=== PATIENT | female | born 1980 | race African-American/Black ===

== ENCOUNTER 2019-02-21 19:39 | Inpatient (IN) | payer MEDICARE ==
[~2019-02-21] VITALS: Ht 167.6 cm; Wt 114.1 kg
[2019-02-21 20:36] LABS: BASO # 0.1 x10^3/uL (0.0-0.2); BASO % 0 % (0-3); EOS # 0.1 x10^3/uL (0.0-0.7); EOS % 0 % (0-3); LYMPH # 2.4 x10^3/uL (1.0-4.8); LYMPH % 14 % (24-48); MEAN CORPUSCULAR HEMOGLOBIN 18 pg (25-35); MEAN CORPUSCULAR HGB CONC 29 g/dL (31-37); MEAN CORPUSCULAR VOLUME 62 fL (79-100); MONO % 6 % (0-9); NEUT % 80 % (31-73); PLATELET COUNT 372 x10^3/uL (140-400); WHITE BLOOD COUNT 17.5 x10^3/uL (4.0-11.0)
[2019-02-21 20:38] LABS: HEMATOCRIT 16.1 % (36.0-47.0); HEMOGLOBIN 4.7 g/dL (12.0-15.5)
[2019-02-21 20:44] LABS: PROTHROMBIN TIME PATIENT 13.2 SEC (11.7-14.0)
[2019-02-21 20:45] LABS: CALCIUM 8.5 mg/dL (8.5-10.1); CREATININE 1.1 mg/dL (0.6-1.0); GFR 67.3; POTASSIUM 3.7 mmol/L (3.5-5.1)
[2019-02-21 20:51] LABS: ALBUMIN 3.5 g/dL (3.4-5.0); ALBUMIN/GLOBULIN RATIO 0.9 (1.0-1.7); TOTAL BILIRUBIN 0.2 mg/dL (0.2-1.0); TOTAL PROTEIN 7.3 g/dL (6.4-8.2)
[2019-02-21 21:25] LABS: BILIRUBIN,URINE NEGATIVE (NEG); CLARITY,URINE CLEAR; COLOR,URINE YELLOW; NITRITE,URINE NEGATIVE (NEG); PH,URINE 5.5; PROTEIN,URINE NEGATIVE (NEG-TRACE); UROBILINOGEN,URINE 0.2 mg/dL (0.2 mg/dL)
[2019-02-21 21:34] LABS: BACTERIA,URINE FEW /HPF (0-FEW); RBC,URINE TNTC /HPF (0-2); SQUAMOUS EPITHELIAL CELL,UR FEW /LPF
[2019-02-21 21:40] LABS: % BANDS 2 % (0-9); % BASOS 3 % (0-3); % LYMPHS 6 % (24-48); % MONOS 6 % (0-10); % SEGS 83 % (35-66); ANISOCYTOSIS MOD; HYPOCHROMIA MARKED; MICROCYTOSIS MARKED; PLT ESTIMATE ADEQUATE (ADEQUATE)
[2019-02-21 21:41] LABS: POLYCHROMASIA SLIGHT
--- NOTE | 2019-02-21 22:03 | RAD ---
Exam: Ultrasound transvaginal Indication: Bleeding Technique: Real-time grayscale and color Doppler images of the pelvis were obtained by the department electrophysiology scientist. Comparisons: None FINDINGS: Uterus measures 10.1 x 6.4 x 5.8 cm. Endometrium measures 14 mm in thickness. Right ovary measures 3.3 x 2.6 x 2.4 cm. Left ovary measures 3.2 x 2.2 x 1.7 cm. Vascular flow evaluation is limited in the left ovary secondary to positioning. Normal vascular flow noted within the right ovary. IMPRESSION: 1. The endometrium measures 14 mm in thickness which is within normal range for a premenopausal female. Given history of prolonged bleeding short-term follow-up ultrasound in 2 weeks to reassess is recommended. 2. Vascular flow in the left ovary is not well assessed secondary to likely technical factors and positioning. Otherwise normal sonographic appearance of the ovaries. Electronically signed by: David Medina MD (02/21/2019 10:00 PM) [id number]
--- NOTE | 2019-02-21 22:30 | PHYS DOC ---
Past Medical History Past Medical History: Bipolar Alcohol Use: None Drug Use: None Adult General Chief Complaint Chief Complaint: FATIGUE HPI HPI Patient is a 38 year old 38-year-old female presenting to the due to chief complaint of 50, dizziness and vaginal bleeding. Patient states that she went to [facility] and was referred to the ED for further evaluation and treatment. Patient states that she's had vaginal bleeding for the last 3 months. Patient states that she has a scheduled appointment with [facility] early next month. Review of Systems Review of Systems Constitutional: Denies fever or chills. Compensatory dizziness, fatigue HENT: Denies nasal congestion, sore throat, sinus tenderness Respiratory: Denies cough or shortness of breath Cardiovascular: Denies CP GI: Denies abdominal pain, nausea, vomiting or diarrhea : Pains of vaginal bleeding Musculoskeletal: Denies back pain or joint pain Skin: Denies rash or skin lesions Neurologic: Denies headache, focal weakness or sensory changes Complete systems were reviewed and found to be within normal limits, except as documented in this note. Allergies Allergies Allergies Coded Allergies Type Severity Reaction Last Updated Verified No Known Drug Allergies 02/21/19 No Physical Exam Physical Exam Constitutional: Well developed, well nourished, no acute distress, non-toxic appearance. Patient appears pale HENT: Normocephalic, atraumatic Eyes: PERRLA, EOMI Neck: Normal range of motion, no tenderness, supple Cardiovascular:Heart rate regular rhythm, no murmur [] Lungs & Thorax: Bilateral breath sounds clear to auscultation [] Abdomen: Bowel sounds normal, soft, no tenderness Extremities: No tenderness, no cyanosis, no clubbing, ROM intact Neurologic: Alert and oriented X 3, normal motor function, normal sensory function, no focal deficits noted. [] Current Patient Data Vital Signs Vital Signs Date Time Temp Pulse Resp B/P (MAP) Pulse Ox O2 Delivery O2 Flow Rate FiO2 02/21/19 20:49 96 20 123/58 (79) 95 Room Air 02/21/19 19:46 98.5 98.5 Lab Values Laboratory Tests Test 02/21/19 20:15 02/21/19 20:30 02/21/19 20:32 White Blood Count 17.5 x10^3/uL (4.0-11.0) H Red Blood Count 2.60 x10^6/uL (3.50-5.40) L Hemoglobin 4.7 g/dL (12.0-15.5) *L Hematocrit 16.1 % (36.0-47.0) *L Mean Corpuscular Volume 62 fL (79-100) L Mean Corpuscular Hemoglobin 18 pg (25-35) L Mean Corpuscular Hemoglobin Concent 29 g/dL (31-37) L Red Cell Distribution Width 24.0 % (11.5-14.5) H Platelet Count 372 x10^3/uL (140-400) Neutrophils (%) (Auto) 80 % (31-73) H Lymphocytes (%) (Auto) 14 % (24-48) L Monocytes (%) (Auto) 6 % (0-9) Eosinophils (%) (Auto) 0 % (0-3) Basophils (%) (Auto) 0 % (0-3) Neutrophils # (Auto) 14.0 x10^3/uL (1.8-7.7) H Lymphocytes # (Auto) 2.4 x10^3/uL (1.0-4.8) Monocytes # (Auto) 1.0 x10^3/uL (0.0-1.1) Eosinophils # (Auto) 0.1 x10^3/uL (0.0-0.7) Basophils # (Auto) 0.1 x10^3/uL (0.0-0.2) Segmented Neutrophils % 83 % (35-66) H Band Neutrophils % 2 % (0-9) Lymphocytes % 6 % (24-48) L Monocytes % 6 % (0-10) Basophils % 3 % (0-3) Platelet Estimate Adequate (ADEQUATE) Polychromasia Slight Hypochromasia Marked Anisocytosis Mod Microcytosis Marked Prothrombin Time 13.2 SEC (11.7-14.0) Prothrombin Time INR 1.0 (0.8-1.1) Sodium Level 143 mmol/L (136-145) Potassium Level 3.7 mmol/L (3.5-5.1) Chloride Level 108 mmol/L (98-107) H Carbon Dioxide Level 25 mmol/L (21-32) Anion Gap 10 (6-14) Blood Urea Nitrogen 9 mg/dL (7-20) Creatinine 1.1 mg/dL (0.6-1.0) H Estimated GFR (Cockcroft-Gault) 67.3 BUN/Creatinine Ratio 8 (6-20) Glucose Level 104 mg/dL (70-99) H Calcium Level 8.5 mg/dL (8.5-10.1) Total Bilirubin 0.2 mg/dL (0.2-1.0) Aspartate Amino Transferase (AST) 16 U/L (15-37) Alanine Aminotransferase (ALT) 15 U/L (14-59) Alkaline Phosphatase 73 U/L (46-116) Total Protein 7.3 g/dL (6.4-8.2) Albumin 3.5 g/dL (3.4-5.0) Albumin/Globulin Ratio 0.9 (1.0-1.7) L Urine Collection Type Unknown Urine Color Yellow Urine Clarity Clear Urine pH 5.5 Urine Specific [employer] 1.025 Urine Protein Negative mg/dL (NEG-TRACE) Urine Glucose (UA) Negative mg/dL (NEG) Urine Ketones (Stick) Negative mg/dL (NEG) Urine Blood Large (NEG) Urine Nitrite Negative (NEG) Urine Bilirubin Negative (NEG) Urine Urobilinogen Dipstick 0.2 mg/dL (0.2 mg/dL) Urine Leukocyte Esterase Trace (NEG) Urine RBC Tntc /HPF (0-2) Urine WBC 5-10 /HPF (0-4) Urine Squamous Epithelial Cells Few /LPF Urine Bacteria Few /HPF (0-FEW) Urine Mucus Marked /LPF POC Urine HCG, Qualitative Hcg negative (Negative) Laboratory Tests 02/21/19 20:15 Laboratory Tests 02/21/19 20:15 EKG EKG [] Radiology/Procedures Radiology/Procedures Ordered pelvic ultrasound. Impressions: Pelvic ultrasound does not show any acute disease. Course & Med Decision Making Course & Med Decision Making Pertinent Labs and Imaging studies reviewed. (See chart for details) Ordered labs, type and screen, pelvic ultrasound, IV. Labs show the patient's hemoglobin of 4.6. Ordered to transfuse 2 units of blood. Pelvic ultrasound does not show any acute disease. Discussed results and plan of care with patient. Patient will be admitted. Discussed care with Dr. Miranda who accepts admission. Nishion Disclaimer Dragon Disclaimer This electronic medical record was generated, in whole or in part, using a voice recognition dictation system. Departure Departure Impression: Primary Impression: Severe anemia Additional Impression: Vaginal bleeding Disposition: ADMITTED INPATIENT Condition: GUARDED Referrals: NO PCP (PCP) Problem Qualifiers SYLVIA JOHN DO Feb 21, 2019 22:30
[2019-02-21] MEDS ORDERED: DIVA500T2 PO (23:35)
[2019-02-21] MEDS ORDERED: BENZ2TAB5 PO (23:35)
[2019-02-21 23:40] VITALS: BP 126/70
[2019-02-22] VITALS (15 sets, daily range): BP systolic 107–126; BP diastolic 48–74
[2019-02-22 06:20] LABS: BASO # 0.1 x10^3/uL (0.0-0.2); BASO % 1 % (0-3); EOS # 0.1 x10^3/uL (0.0-0.7); EOS % 1 % (0-3); LYMPH # 2.9 x10^3/uL (1.0-4.8); LYMPH % 18 % (24-48); MEAN CORPUSCULAR HEMOGLOBIN 20 pg (25-35); MEAN CORPUSCULAR HGB CONC 30 g/dL (31-37); MEAN CORPUSCULAR VOLUME 67 fL (79-100); MONO % 6 % (0-9); NEUT # 12.3 x10^3/uL (1.8-7.7); NEUT % 75 % (31-73); PLATELET COUNT 315 x10^3/uL (140-400); RED CELL DISTRIBUTION WIDTH 27.6 % (11.5-14.5); WHITE BLOOD COUNT 16.4 x10^3/uL (4.0-11.0)
[2019-02-22 06:33] LABS: HEMATOCRIT 20.9 % (36.0-47.0); HEMOGLOBIN 6.3 g/dL (12.0-15.5)
--- NOTE | 2019-02-22 10:36 | PDOC ---
[employer] PROGRESS NOTE Chief Complaint Chief Complaint Severe anemia, vaginal bleeding History of Present Illness History of Present Illness Patient is a 38 year old 38-year-old female presenting to the due to chief complaint of 50, dizziness and vaginal bleeding. Patient states that she went to [facility] and was referred to the ED for further evaluation and treatment. Patient states that she's had vaginal bleeding for the last 3 months. Patient states that she has a scheduled appointment with [facility] early next month. Patient seen and examined on medical floor. Planning to consult OBGYN for excessive vaginal bleeding. Vitals/I&O Vitals/I&O: Vital Signs Date Time Temp Pulse Resp B/P (MAP) Pulse Ox O2 Delivery O2 Flow Rate FiO2 02/22/19 08:00 Room Air 02/22/19 07:38 98.2 87 16 107/59 (75) 98.2 02/22/19 02:45 97 I & O 02/21/19 02/21/19 02/22/19 15:00 23:00 07:00 Intake Total 1000 ml Output Total 0 ml Balance 1000 ml Physical Exam General: Alert, Oriented X3, Cooperative, No acute distress Heart: Regular rate, Normal S1, Normal S2, No murmurs Lungs: Clear Abdomen: Normal bowel sounds, Soft, No tenderness, No hepatosplenomegaly Extremities: No clubbing, No cyanosis, No edema, Normal pulses Skin: No rashes, No breakdown, No significant lesion Labs Labs: Laboratory Tests Test 02/21/19 20:15 02/21/19 20:30 02/21/19 20:32 02/22/19 06:00 White Blood Count 17.5 x10^3/uL (4.0-11.0) 16.4 x10^3/uL (4.0-11.0) Red Blood Count 2.60 x10^6/uL (3.50-5.40) 3.10 x10^6/uL (3.50-5.40) Hemoglobin 4.7 g/dL (12.0-15.5) 6.3 g/dL (12.0-15.5) Hematocrit 16.1 % (36.0-47.0) 20.9 % (36.0-47.0) Mean Corpuscular Volume 62 fL (79-100) 67 fL (79-100) Mean Corpuscular Hemoglobin 18 pg (25-35) 20 pg (25-35) Mean Corpuscular Hemoglobin Concent 29 g/dL (31-37) 30 g/dL (31-37) Red Cell Distribution Width 24.0 % (11.5-14.5) 27.6 % (11.5-14.5) Platelet Count 372 x10^3/uL (140-400) 315 x10^3/uL (140-400) Neutrophils (%) (Auto) 80 % (31-73) 75 % (31-73) Lymphocytes (%) (Auto) 14 % (24-48) 18 % (24-48) Monocytes (%) (Auto) 6 % (0-9) 6 % (0-9) Eosinophils (%) (Auto) 0 % (0-3) 1 % (0-3) Basophils (%) (Auto) 0 % (0-3) 1 % (0-3) Neutrophils # (Auto) 14.0 x10^3/uL (1.8-7.7) 12.3 x10^3/uL (1.8-7.7) Lymphocytes # (Auto) 2.4 x10^3/uL (1.0-4.8) 2.9 x10^3/uL (1.0-4.8) Monocytes # (Auto) 1.0 x10^3/uL (0.0-1.1) 1.0 x10^3/uL (0.0-1.1) Eosinophils # (Auto) 0.1 x10^3/uL (0.0-0.7) 0.1 x10^3/uL (0.0-0.7) Basophils # (Auto) 0.1 x10^3/uL (0.0-0.2) 0.1 x10^3/uL (0.0-0.2) Segmented Neutrophils % 83 % (35-66) Band Neutrophils % 2 % (0-9) Lymphocytes % 6 % (24-48) Monocytes % 6 % (0-10) Basophils % 3 % (0-3) Platelet Estimate Adequate (ADEQUATE) Polychromasia Slight Hypochromasia Marked Anisocytosis Mod Microcytosis Marked Prothrombin Time 13.2 SEC (11.7-14.0) Prothromb Time International Ratio 1.0 (0.8-1.1) Sodium Level 143 mmol/L (136-145) Potassium Level 3.7 mmol/L (3.5-5.1) Chloride Level 108 mmol/L (98-107) Carbon Dioxide Level 25 mmol/L (21-32) Anion Gap 10 (6-14) Blood Urea Nitrogen 9 mg/dL (7-20) Creatinine 1.1 mg/dL (0.6-1.0) Estimated GFR (Cockcroft-Gault) 67.3 BUN/Creatinine Ratio 8 (6-20) Glucose Level 104 mg/dL (70-99) Calcium Level 8.5 mg/dL (8.5-10.1) Total Bilirubin 0.2 mg/dL (0.2-1.0) Aspartate Amino Transf (AST/SGOT) 16 U/L (15-37) Alanine Aminotransferase (ALT/SGPT) 15 U/L (14-59) Alkaline Phosphatase 73 U/L (46-116) Total Protein 7.3 g/dL (6.4-8.2) Albumin 3.5 g/dL (3.4-5.0) Albumin/Globulin Ratio 0.9 (1.0-1.7) Urine Collection Type Unknown Urine Color Yellow Urine Clarity Clear Urine pH 5.5 Urine Specific [employer] 1.025 Urine Protein Negative mg/dL (NEG-TRACE) Urine Glucose (UA) Negative mg/dL (NEG) Urine Ketones (Stick) Negative mg/dL (NEG) Urine Blood Large (NEG) Urine Nitrite Negative (NEG) Urine Bilirubin Negative (NEG) Urine Urobilinogen Dipstick 0.2 mg/dL (0.2 mg/dL) Urine Leukocyte Esterase Trace (NEG) Urine RBC Tntc /HPF (0-2) Urine WBC 5-10 /HPF (0-4) Urine Squamous Epithelial Cells Few /LPF Urine Bacteria Few /HPF (0-FEW) Urine Mucus Marked /LPF Bedside Urine HCG, Qualitative Hcg negative (Negative) Review of Systems Review of Systems: Patient denies N/V and weakness, patient complains of dizziness Assessment and Plan Assessmemt and Plan Assessment: Excessive vaginal bleeding, Severe anemia Plan: 1. Transfuse 2 units of packed RBCs 2. add iron 3. consult OBGYN for excessive vaginal bleeding 4. DVT prophylaxis 5. home meds 6. full code Comment Review of Relevant I have reviewed the following items terence (where applicable) has been applied. JANINE THIBODEAUX III DO Feb 22, 2019 10:36
[2019-02-22] MEDS: IRON POLYSACCHARIDE COMPLEX 150 MG CAPSULE PO SCH ×2 (12:23→20:50)
--- NOTE | 2019-02-22 12:43 | PDOC2 ---
CONSULT Date of Consult Date of Consult DATE: 02/22/19 TIME: 12:39 Reason for Consult Reason for Consult: vaginal bleeding Referring Physician Referring Physician: Dr. Pena Identification/Chief Complaint Chief Complaint dizziness and fatigue Source Source: Chart review, Patient History of Present Illness Reason for Visit: 38 y/o presents to ED with c/o dizziness, fatigue and vaginal bleeding daily x 3 months. She plans to see Dr. Solis in couple weeks. She is in process of 3rd unit of PRBCs due to severe anemia hgb less than 5. No h/o bl eeding disorders. Past Surgical History Past Surgical History: No pertinent history Current Medications Current Medications Current Medications Polysaccharide Iron Complex (Niferex 150) 150 mg BID PO Last administered on 02/22/19at 12:23; Start 02/22/19 at 12:00 Active Scripts Active Reported Benztropine Mesylate 2 Mg Tablet 2 Mg PO DAILY Depakote (Divalproex Sodium) 500 Mg Tablet.dr 250 Mg PO TID Allergies Allergies: Coded Allergies: No Known Drug Allergies (Unverified , 02/21/19) ROS General: YES: Fatigue, Malaise; No: Chills, Night Sweats, Appetite, Other PSYCHOLOGICAL ROS: No: Anxiety, Behavioral Disorder, Concentration difficultie, Decreased libido, Depression, Disorientation, Hallucinations, Hostility, Irritablity, Memory difficulties, Mood Swings, Obsessive thoughts, Physical abuse, Sexual abuse, Sleep disturbances, Suicidal ideation, Other Eyes: No Blurry vision, No Decreased vision, No Double vision, No Dry eyes, No Excessive tearing, No Eye Pain, No Itchy Eyes, No Loss of vision, No Photophobia, No Scotomata, No Uses contacts, No Uses glasses, No Other HEENT: No: Heacaches, Visual Changes, Hearing change, Nasal congestion, Nasal discharge, Oral lesions, Sinus pain, Sore Throat, Epistaxis, Sneezing, Snoring, Tinnitus, Vertigo, Vocal changes, Other ALLERGY AND IMMUNOLOGY: No: Hives, Insect Bite Sensitivity, Itchy/Watery Eyes, Nasal Congestion, Post Nasal Drip, Seasonal Allergies, Other Hematological and Lymphatic: No: Bleeding Problems, Blood Clots, Blood Transfusions, Brusing, Night Sweats, Pallor, Swollen Lymph Nodes, Other ENDOCRINE: No: Breast Changes, Galactorrhea, Hair Pattern Changes, Hot Flashes, Malaise/lethargy, Mood Swings, Palpitations, Polydipsia/polyuria, Skin Changes, Temperature Intolerance, Unexpected Weight Changes, Other Respiratory: No: Cough, Hemoptysis, Orthopnea, Pleuritic Pain, Shortness of breath, SOB with excertion, Sputum Changes, Stridor, Tachypnea, Wheezing, Other Cardiovascular: No Chest Pain, No Palpitations, No Orthopnea, No Paroxysmal N oc. Dyspnea, No Edema, No Lt Headedness, No Other Gastrointestinal: No Nausea, No Vomiting, No Abdominal Pain, No Diarrhea, No Constipation, No Melena, No Hematochezia, No Other Genitourinary: No Dysuria, No Frequency, No Incontinence, No Hematuria, No Retention, No Discharge, No Urgency, No Pain, No Flank Pain, No Other, No , No , No , No , No , No , No Neurological: No Behavorial Changes, No Bowel/Bladder ControlChng, No Confusion, No Dizziness, No Gait Disturbance, No Headaches, No Impaired Coord/balance, No Memory Loss, No Numbness/Tingling, No Seizures, No Speech Problems, No Tremors, No Visual Changes, No Weakness, No Other Physical Exam General: Alert, Oriented X3, Cooperative HEENT: Atraumatic Lungs: Clear to auscultation Heart: Regular rate Abdomen: Normal bowel sounds, Soft, No tenderness, No masses Extremities: No edema Neuro: Normal gait Psych/Mental Status: Mental status NL Vitals VITALS Vital Signs Date Time Temp Pulse Resp B/P (MAP) Pulse Ox O2 Delivery O2 Flow Rate FiO2 02/22/19 12:21 98.8 85 16 112/56 98.8 02/22/19 11:24 97 Room Air Labs Labs Laboratory Tests Test 02/21/19 20:15 02/21/19 20:30 02/21/19 20:32 02/22/19 06:00 White Blood Count 17.5 x10^3/uL (4.0-11.0) 16.4 x10^3/uL (4.0-11.0) Red Blood Count 2.60 x10^6/uL (3.50-5.40) 3.10 x10^6/uL (3.50-5.40) Hemoglobin 4.7 g/dL (12.0-15.5) 6.3 g/dL (12.0-15.5) Hematocrit 16.1 % (36.0-47.0) 20.9 % (36.0-47.0) Mean Corpuscular Volume 62 fL (79-100) 67 fL (79-100) Mean Corpuscular Hemoglobin 18 pg (25-35) 20 pg (25-35) Mean Corpuscular Hemoglobin Concent 29 g/dL (31-37) 30 g/dL (31-37) Red Cell Distribution Width 24.0 % (11.5-14.5) 27.6 % (11.5-14.5) Platelet Count 372 x10^3/uL (140-400) 315 x10^3/uL (140-400) Neutrophils (%) (Auto) 80 % (31-73) 75 % (31-73) Lymphocytes (%) (Auto) 14 % (24-48) 18 % (24-48) Monocytes (%) (Auto) 6 % (0-9) 6 % (0-9) Eosinophils (%) (Auto) 0 % (0-3) 1 % (0-3) Basophils (%) (Auto) 0 % (0-3) 1 % (0-3) Neutrophils # (Auto) 14.0 x10^3/uL (1.8-7.7) 12.3 x10^3/uL (1.8-7.7) Lymphocytes # (Auto) 2.4 x10^3/uL (1.0-4.8) 2.9 x10^3/uL (1.0-4.8) Monocytes # (Auto) 1.0 x10^3/uL (0.0-1.1) 1.0 x10^3/uL (0.0-1.1) Eosinophils # (Auto) 0.1 x10^3/uL (0.0-0.7) 0.1 x10^3/uL (0.0-0.7) Basophils # (Auto) 0.1 x10^3/uL (0.0-0.2) 0.1 x10^3/uL (0.0-0.2) Segmented Neutrophils % 83 % (35-66) Band Neutrophils % 2 % (0-9) Lymphocytes % 6 % (24-48) Monocytes % 6 % (0-10) Basophils % 3 % (0-3) Platelet Estimate Adequate (ADEQUATE) Polychromasia Slight Hypochromasia Marked Anisocytosis Mod Microcytosis Marked Prothrombin Time 13.2 SEC (11.7-14.0) Prothromb Time International Ratio 1.0 (0.8-1.1) Sodium Level 143 mmol/L (136-145) Potassium Level 3.7 mmol/L (3.5-5.1) Chloride Level 108 mmol/L (98-107) Carbon Dioxide Level 25 mmol/L (21-32) Anion Gap 10 (6-14) Blood Urea Nitrogen 9 mg/dL (7-20) Creatinine 1.1 mg/dL (0.6-1.0) Estimated GFR (Cockcroft-Gault) 67.3 BUN/Creatinine Ratio 8 (6-20) Glucose Level 104 mg/dL (70-99) Calcium Level 8.5 mg/dL (8.5-10.1) Total Bilirubin 0.2 mg/dL (0.2-1.0) Aspartate Amino Transf (AST/SGOT) 16 U/L (15-37) Alanine Aminotransferase (ALT/SGPT) 15 U/L (14-59) Alkaline Phosphatase 73 U/L (46-116) Total Protein 7.3 g/dL (6.4-8.2) Albumin 3.5 g/dL (3.4-5.0) Albumin/Globulin Ratio 0.9 (1.0-1.7) Urine Collection Type Unknown Urine Color Yellow Urine Clarity Clear Urine pH 5.5 Urine Specific [employer] 1.025 Urine Protein Negative mg/dL (NEG-TRACE) Urine Glucose (UA) Negative mg/dL (NEG) Urine Ketones (Stick) Negative mg/dL (NEG) Urine Blood Large (NEG) Urine Nitrite Negative (NEG) Urine Bilirubin Negative (NEG) Urine Urobilinogen Dipstick 0.2 mg/dL (0.2 mg/dL) Urine Leukocyte Esterase Trace (NEG) Urine RBC Tntc /HPF (0-2) Urine WBC 5-10 /HPF (0-4) Urine Squamous Epithelial Cells Few /LPF Urine Bacteria Few /HPF (0-FEW) Urine Mucus Marked /LPF Bedside Urine HCG, Qualitative Hcg negative (Negative) Laboratory Tests Test 02/21/19 20:15 02/21/19 20:30 02/21/19 20:32 02/22/19 06:00 White Blood Count 17.5 x10^3/uL (4.0-11.0) 16.4 x10^3/uL (4.0-11.0) Red Blood Count 2.60 x10^6/uL (3.50-5.40) 3.10 x10^6/uL (3.50-5.40) Hemoglobin 4.7 g/dL (12.0-15.5) 6.3 g/dL (12.0-15.5) Hematocrit 16.1 % (36.0-47.0) 20.9 % (36.0-47.0) Mean Corpuscular Volume 62 fL (79-100) 67 fL (79-100) Mean Corpuscular Hemoglobin 18 pg (25-35) 20 pg (25-35) Mean Corpuscular Hemoglobin Concent 29 g/dL (31-37) 30 g/dL (31-37) Red Cell Distribution Width 24.0 % (11.5-14.5) 27.6 % (11.5-14.5) Platelet Count 372 x10^3/uL (140-400) 315 x10^3/uL (140-400) Neutrophils (%) (Auto) 80 % (31-73) 75 % (31-73) Lymphocytes (%) (Auto) 14 % (24-48) 18 % (24-48) Monocytes (%) (Auto) 6 % (0-9) 6 % (0-9) Eosinophils (%) (Auto) 0 % (0-3) 1 % (0-3) Basophils (%) (Auto) 0 % (0-3) 1 % (0-3) Neutrophils # (Auto) 14.0 x10^3/uL (1.8-7.7) 12.3 x10^3/uL (1.8-7.7) Lymphocytes # (Auto) 2.4 x10^3/uL (1.0-4.8) 2.9 x10^3/uL (1.0-4.8) Monocytes # (Auto) 1.0 x10^3/uL (0.0-1.1) 1.0 x10^3/uL (0.0-1.1) Eosinophils # (Auto) 0.1 x10^3/uL (0.0-0.7) 0.1 x10^3/uL (0.0-0.7) Basophils # (Auto) 0.1 x10^3/uL (0.0-0.2) 0.1 x10^3/uL (0.0-0.2) Segmented Neutrophils % 83 % (35-66) Band Neutrophils % 2 % (0-9) Lymphocytes % 6 % (24-48) Monocytes % 6 % (0-10) Basophils % 3 % (0-3) Platelet Estimate Adequate (ADEQUATE) Polychromasia Slight Hypochromasia Marked Anisocytosis Mod Microcytosis Marked Prothrombin Time 13.2 SEC (11.7-14.0) Prothromb Time International Ratio 1.0 (0.8-1.1) Sodium Level 143 mmol/L (136-145) Potassium Level 3.7 mmol/L (3.5-5.1) Chloride Level 108 mmol/L (98-107) Carbon Dioxide Level 25 mmol/L (21-32) Anion Gap 10 (6-14) Blood Urea Nitrogen 9 mg/dL (7-20) Creatinine 1.1 mg/dL (0.6-1.0) Estimated GFR (Cockcroft-Gault) 67.3 BUN/Creatinine Ratio 8 (6-20) Glucose Level 104 mg/dL (70-99) Calcium Level 8.5 mg/dL (8.5-10.1) Total Bilirubin 0.2 mg/dL (0.2-1.0) Aspartate Amino Transf (AST/SGOT) 16 U/L (15-37) Alanine Aminotransferase (ALT/SGPT) 15 U/L (14-59) Alkaline Phosphatase 73 U/L (46-116) Total Protein 7.3 g/dL (6.4-8.2) Albumin 3.5 g/dL (3.4-5.0) Albumin/Globulin Ratio 0.9 (1.0-1.7) Urine Collection Type Unknown Urine Color Yellow Urine Clarity Clear Urine pH 5.5 Urine Specific [place] 1.025 Urine Protein Negative mg/dL (NEG-TRACE) Urine Glucose (UA) Negative mg/dL (NEG) Urine Ketones (Stick) Negative mg/dL (NEG) Urine Blood Large (NEG) Urine Nitrite Negative (NEG) Urine Bilirubin Negative (NEG) Urine Urobilinogen Dipstick 0.2 mg/dL (0.2 mg/dL) Urine Leukocyte Esterase Trace (NEG) Urine RBC Tntc /HPF (0-2) Urine WBC 5-10 /HPF (0-4) Urine Squamous Epithelial Cells Few /LPF Urine Bacteria Few /HPF (0-FEW) Urine Mucus Marked /LPF Bedside Urine HCG, Qualitative Hcg negative (Negative) Assessment/Plan Assessment/Plan A: Severe anemia AUB P: Pelvic sono was negative. Plan Provera BID until seen by Dr. Solis. Thank you for consult. JORGE PENA Jr, MD Feb 22, 2019 12:43
--- NOTE | 2019-02-22 15:06 | NUR ---
SW following pt for dc planning. Chart reviewed. Pt lives at home. No SW needs identified at this time. SW will be available as needed.
[2019-02-22 21:34] LABS: HEMATOCRIT 25.8 % (36.0-47.0); HEMOGLOBIN 8.1 g/dL (12.0-15.5); RED BLOOD COUNT 3.66 x10^6/uL (3.50-5.40); RED CELL DISTRIBUTION WIDTH 29.6 % (11.5-14.5); WHITE BLOOD COUNT 15.8 x10^3/uL (4.0-11.0)
[2019-02-23 03:25] VITALS: BP 115/61
[2019-02-23 04:41] LABS: BASO # 0.1 x10^3/uL (0.0-0.2); BASO % 1 % (0-3); EOS # 0.2 x10^3/uL (0.0-0.7); EOS % 1 % (0-3); HEMATOCRIT 25.1 % (36.0-47.0); HEMOGLOBIN 7.8 g/dL (12.0-15.5); LYMPH # 3.3 x10^3/uL (1.0-4.8); LYMPH % 21 % (24-48); MEAN CORPUSCULAR HEMOGLOBIN 22 pg (25-35); MEAN CORPUSCULAR HGB CONC 31 g/dL (31-37); MEAN CORPUSCULAR VOLUME 71 fL (79-100); MONO # 0.9 x10^3/uL (0.0-1.1); MONO % 6 % (0-9); NEUT # 11.4 x10^3/uL (1.8-7.7); NEUT % 72 % (31-73); PLATELET COUNT 334 x10^3/uL (140-400); RED BLOOD COUNT 3.56 x10^6/uL (3.50-5.40); RED CELL DISTRIBUTION WIDTH 29.7 % (11.5-14.5); WHITE BLOOD COUNT 15.8 x10^3/uL (4.0-11.0)
[2019-02-23 05:03] LABS: ALBUMIN/GLOBULIN RATIO 0.8 (1.0-1.7); CALCIUM 8.2 mg/dL (8.5-10.1); GFR 75.1; POTASSIUM 3.6 mmol/L (3.5-5.1); TOTAL BILIRUBIN 0.2 mg/dL (0.2-1.0); TOTAL PROTEIN 6.8 g/dL (6.4-8.2)
[2019-02-23 07:00] VITALS: BP 115/64
[2019-02-23] MEDS: IRON POLYSACCHARIDE COMPLEX 150 MG CAPSULE PO SCH (10:04)
--- NOTE | 2019-02-23 10:26 | PDOC ---
[employer] PROGRESS NOTE Chief Complaint Chief Complaint Severe anemia, vaginal bleeding History of Present Illness History of Present Illness 02/23/2019 Pt was seen and examined. Pt was resting comfortably on interview with no acute complaints Reports she is ready for D/C and reports willingness to f/u with ob/gn on an outpatient basis. 02/22/2019 Patient is a 38 year old 38-year-old female presenting to the due to chief comp laint of 50, dizziness and vaginal bleeding. Patient states that she went to [facility] and was referred to the ED for further evaluation and treatment. Patient states that she's had vaginal bleeding for the last 3 months. Patient states that she has a scheduled appointment with [facility] early next month. Patient seen and examined on medical floor. Planning to con radhat OBGYN for excessive vaginal bleeding. Vitals/I&O Vitals/I&O: Vital Signs Date Time Temp Pulse Resp B/P (MAP) Pulse Ox O2 Delivery O2 Flow Rate FiO2 02/23/19 07:00 98.2 79 16 115/64 (81) 96 Room Air 98.2 I & O 02/22/19 02/22/19 02/23/19 15:00 23:00 07:00 Intake Total 325 ml 200 ml Output Total 0 ml Balance 325 ml 200 ml Physical Exam General: Alert, Oriented X3, Cooperative Heart: Regular rate Lungs: Clear Abdomen: Normal bowel sounds, Soft, No tenderness, No masses Extremities: No edema Skin: No rashes, No breakdown, No significant lesion Labs Labs: Laboratory Tests Test 02/22/19 20:00 02/23/19 04:00 White Blood Count 15.8 x10^3/uL (4.0-11.0) 15.8 x10^3/uL (4.0-11.0) Red Blood Count 3.66 x10^6/uL (3.50-5.40) 3.56 x10^6/uL (3.50-5.40) Hemoglobin 8.1 g/dL (12.0-15.5) 7.8 g/dL (12.0-15.5) Hematocrit 25.8 % (36.0-47.0) 25.1 % (36.0-47.0) Mean Corpuscular Volume 71 fL (79-100) 71 fL (79-100) Mean Corpuscular Hemoglobin 22 pg (25-35) 22 pg (25-35) Mean Corpuscular Hemoglobin Concent 32 g/dL (31-37) 31 g/dL (31-37) Red Cell Distribution Width 29.6 % (11.5-14.5) 29.7 % (11.5-14.5) Platelet Count 330 x10^3/uL (140-400) 334 x10^3/uL (140-400) Neutrophils (%) (Auto) 72 % (31-73) Lymphocytes (%) (Auto) 21 % (24-48) Monocytes (%) (Auto) 6 % (0-9) Eosinophils (%) (Auto) 1 % (0-3) Basophils (%) (Auto) 1 % (0-3) Neutrophils # (Auto) 11.4 x10^3/uL (1.8-7.7) Lymphocytes # (Auto) 3.3 x10^3/uL (1.0-4.8) Monocytes # (Auto) 0.9 x10^3/uL (0.0-1.1) Eosinophils # (Auto) 0.2 x10^3/uL (0.0-0.7) Basophils # (Auto) 0.1 x10^3/uL (0.0-0.2) Sodium Level 144 mmol/L (136-145) Potassium Level 3.6 mmol/L (3.5-5.1) Chloride Level 109 mmol/L (98-107) Carbon Dioxide Level 26 mmol/L (21-32) Anion Gap 9 (6-14) Blood Urea Nitrogen 11 mg/dL (7-20) Creatinine 1.0 mg/dL (0.6-1.0) Estimated GFR (Cockcroft-Gault) 75.1 BUN/Creatinine Ratio 11 (6-20) Glucose Level 93 mg/dL (70-99) Calcium Level 8.2 mg/dL (8.5-10.1) Total Bilirubin 0.2 mg/dL (0.2-1.0) Aspartate Amino Transf (AST/SGOT) 15 U/L (15-37) Alanine Aminotransferase (ALT/SGPT) 13 U/L (14-59) Alkaline Phosphatase 66 U/L (46-116) Total Protein 6.8 g/dL (6.4-8.2) Albumin 3.0 g/dL (3.4-5.0) Albumin/Globulin Ratio 0.8 (1.0-1.7) Review of Systems Review of Systems: No CP No SOB No N/V/D Assessment and Plan Assessmemt and Plan Severe anemia vaginal bleeding Plan: 1) Plan to D/C today 2) Continue hormonal manipulation 3) Pt to f/u with Dr. Solis (Ob/Gn) outpatient 4) Suggested pt start "Slow FE" otc, suggested dosing: tk 1 t po bid for a few weeks and then continue taking 1 t po qd 5) Full code 6) DVT prophylaxis Comment Review of Relevant I have reviewed the following items terence (where applicable) has been applied. Medications: Current Medications Medications (Trade) Dose Ordered Sig/Areli Route PRN Reason Start Time Stop Time Status Last Admin Dose Admin Polysaccharide Iron Complex (Niferex 150) 150 mg BID PO 02/22/19 12:00 02/23/19 10:04 Medroxyprogesterone Acetate (Provera) 20 mg BID PO 02/22/19 13:00 02/23/19 10:04 JANINE THIBODEAUX III DO Feb 23, 2019 10:26
[2019-02-23 11:00] VITALS: BP 113/60
--- NOTE | 2019-02-23 16:51 | NUR ---
Pt discharged to home. Discharge teaching done. Verbalized understanding. Transportation provided by pts mother.
--- NOTE | 2019-02-24 09:03 | DS ---
DATE OF DISCHARGE: 02/23/2019 ADMISSION DIAGNOSIS: Dysfunctional bleeding with severe anemia. DISCHARGE DIAGNOSIS: dysfunctional uterine bleeding with resolving anemia. HOSPITAL COURSE: The patient is a pleasant 38-year-old female who presented with dysfunctional bleeding with severe anemia with a hemoglobin of 4.7. She was admitted. We transfused 3 units, got her hemoglobin up to 7.8. We consulted [facility]. They are trying hormonal manipulation, but eventually the patient may need a hysterectomy. Overall, she was looking good. We discharged to home with close outpatient followup. DISPOSITION: Home. ACTIVITY: As tolerated. DIET: Low sodium. MEDICATIONS: Please see MRAD. TOTAL TIME: 32 minutes. JANINE THIBODEAUX DO DR: AVE/katelynn JOB#: [id number] / [id number]
--- NOTE | 2019-02-24 09:12 | HP ---
ADMIT DATE: 02/23/2019 CHIEF COMPLAINT: She complains of vaginal bleeding and weakness and fatigue. HISTORY OF PRESENT ILLNESS: The patient is a pleasant 38-year-old female, who basically presented to the ER with dysfunctional uterine bleeding. She has hemoglobin of 4.7. I discussed the case with ER physician. We have admitted the patient. We are going to give her blood and consult [facility]. PAST MEDICAL HISTORY: Bipolar. ALLERGIES: None. FAMILY HISTORY: Diabetes. SOCIAL HISTORY: She does not drink, smoke, or take drugs. MEDICATIONS: Reviewed, please refer to the MRAD. REVIEW OF SYSTEMS: GENERAL: She complains of weakness. SKIN: No bruising, hair changes or rashes. EYES: No blurred, double or loss of vision. NOSE AND THROAT: No history of nosebleeds, hoarseness or sore throat. HEART: No history of palpitations, chest pain or shortness of breath on exertion. LUNGS: Denies cough, hemoptysis, wheezing or shortness of breath. GASTROINTESTINAL: Denies changes in appetite, nausea, vomiting, diarrhea or constipation. GENITOURINARY: No history of frequency, urgency, hesitancy or nocturia. NEUROLOGIC: Denies history of numbness, tingling, tremor or weakness. PSYCHIATRIC: No history of panic, anxiety or depression. ENDOCRINE: No history of heat or cold intolerance, polyuria or polydipsia. EXTREMITIES: Denies muscle weakness, joint pain, pain on walking or stiffness. PHYSICAL EXAMINATION: VITALS: Within normal limits and are stable. GENERAL: No apparent distress. Alert and oriented. HEENT: Head is normocephalic, atraumatic, pupils were equally round and reactive to light and accommodation. NECK: Supple, no JVD, no thyromegaly was noted. LUNGS: Clear to auscultation in all lung blanca without rhonchi or wheezing. HEART: RRR, S1, S2 present. Peripheral pulses intact, no obvious murmurs were noted. ABDOMEN: Soft, nontender. Positive bowel sounds no organomegaly, normal bowel sounds. EXTREMITIES: Without any cyanosis, clubbing, or edema. Pedal pulses intact, Homans sign is negative. NEUROLOGIC: Normal speech, normal tone. A & O x3, moves all extremities, no obvious focal deficits. PSYCHIATRIC: Normal affect, normal mood. Stable. SKIN: No ulcerations or rashes, good skin turgor, no jaundice. VASCULAR: Good capillary refill, neurovascular bundle appears to be intact. LABORATORY DATA: Hemoglobin is 4.7. ASSESSMENT AND PLAN: Dysfunctional uterine bleeding with secondary anemia. The patient is being admitted. We are transfusing. We are consulting [facility]PER[facility]. Track her hemoglobin levels. Home meds, DVT prophylaxis, we are going to add in some iron. JANINE THIBODEAUX DO DR: AVE/katelynn JOB#: [id number] / [id number]
== END 2019-02-23 16:51 | disposition home or self-care (01) | DRG 760 ==
LOC: ER 19:39 → 6 SOUTH 21:15
PROVIDERS: ADMIT Internal Medicine; ATTEND Internal Medicine
PROC: 30233N1 Transfusion of Nonautologous Red Blood Cells into Peripheral Vein, Percutaneous Approach (ICD-10-PCS; principal; 2019-02-21)
DX: N93.8 Other specified abnormal uterine and vaginal bleeding (principal); R65.11 Systemic inflammatory response syndrome (SIRS) of non-infectious origin with acute organ dysfunction; D64.9 Anemia, unspecified; Z83.3 Family history of diabetes mellitus
CPT/HCPCS: 36415; 76830; 80053; 81001; 81025; 85007; 85025; 85027; 85610; 86850; 86900; 86901; 86920; 87086; P9016; 99284-25; G0378